=== PATIENT | male | born 1975 | race Two or more races ===

== ENCOUNTER 2022-03-25 17:26 | Emergency (ER) | payer OTHER ==
[~2022-03-25] VITALS: Ht 180.3 cm; Wt 90.0 kg
[2022-03-25 17:30] VITALS: BP 115/79
[2022-03-25] MEDS ORDERED: IBUPROFEN 200 MG TABLET. PO ONE ×2 (18:30→18:55)
--- NOTE | 2022-03-25 18:40 | PHYS DOC ---
Past Medical History Past Medical History: Cancer Past Surgical History: Colectomy General Adult EDM: Chief Complaint: LOWER EXT PAIN HPI: HPI: Patient is a 47-year-old male who presents today with right ankle pain. Patient states that he was outside playing basketball with some friends, and he said he felt a pop in the back of his right lower leg near the heel area, he said since that time he has had difficulty walking and increased pain and swelling in that area. Patient states he is able to walk but is quite difficult due to the pain, patient does have a past medical history of colon cancer and a colostomy. Review of Systems: Review of Systems: Constitutional: Denies fever or chills. [] Eyes: Denies change in visual acuity. [] HENT: Denies nasal congestion or sore throat. [] Respiratory: Denies cough or shortness of breath. [] Cardiovascular: Denies chest pain or edema. [] GI: Denies abdominal pain, nausea, vomiting, bloody stools or diarrhea. [] : Denies dysuria. [] Musculoskeletal: Right lower leg pain Integument: Denies rash. [] Neurologic: Denies headache, focal weakness or sensory changes. [] Endocrine: Denies polyuria or polydipsia. [] Lymphatic: Denies swollen glands. [] Psychiatric: Denies depression or anxiety. [] Heart Score: C/O Chest Pain: No Risk Factors: Risk Factors: DM, Current or recent (<one month) smoker, HTN, HLP, family history of CAD, obesity. Risk Scores: Score 0 - 3: 2.5% MACE over next 6 weeks - Discharge Home Score 4 - 6: 20.3% MACE over next 6 weeks - Admit for Clinical Observation Score 7 - 10: 72.7% MACE over next 6 weeks - Early Invasive Strategies Current Medications: Current Medications Medications (Trade) Dose Ordered Sig/Laura Start Time Stop Time Status Last Admin Dose Admin Ibuprofen (Motrin) 600 mg 1X ONCE 03/25/22 18:30 03/25/22 18:31 UNV Physical Exam: PE: Constitutional: Well developed, well nourished, no acute distress, non-toxic appearance. [] HENT: Normocephalic, atraumatic, bilateral external ears normal, oropharynx moist, no oral exudates, nose normal. [] Eyes: PERRLA, EOMI, conjunctiva normal, no discharge. [] Neck: Normal range of motion, no tenderness, supple, no stridor. [] Cardiovascular:Heart rate regular rhythm, no murmur [] Lungs & Thorax: Bilateral breath sounds clear to auscultation [] Abdomen: Bowel sounds normal, soft, no tenderness, no masses, no pulsatile masses. [] Skin: Warm, dry, no erythema, no rash. [] Back: No tenderness, no CVA tenderness. [] Extremities: Right lower extremity in the heel area is painful and tender to touch, patient also has swelling, patient's Rahman test is abnormal on the right side, patient is able to slightly flex and extend foot but is with great pain. Sensory distal to the injury is intact cap refill is less than 2 seconds and dorsalis pedis pulse is 2+. Neurologic: Alert and oriented X 3, normal motor function, normal sensory function, no focal deficits noted. [] Psychologic: Affect normal, judgement normal, mood normal. [] Current Patient Data: Vital Signs: Vital Signs Date Time Temp Pulse Resp B/P (MAP) Pulse Ox O2 Delivery O2 Flow Rate FiO2 03/25/22 17:30 98.7 84 16 115/79 (91) 99 Room Air 98.7 EKG: EKG: [] Radiology/Procedures: Radiology/Procedures: REASON: felt pop in ankle while playing basketball PROCEDURE: ANKLE RIGHT 3V Exam: Right ankle 3 views INDICATION: Fall, felt a pop ankle while playing basketball TECHNIQUE: Frontal, lateral and oblique views the right ankle Comparisons: None FINDINGS: Bone mineralization is normal. No acute or healed fractures. Soft tissues are unremarkable. Joint spaces are well-maintained. IMPRESSION: No acute osseous abnormality Electronically signed by: Mary Madsen MD (03/25/2022 8:44 PM) [facility] [] Course & Med Decision Making: Course & Med Decision Making Pertinent Labs and Imaging studies reviewed. (See chart for details) [address] Becker from the orthopedic group he recommends splinting the patient with a short leg splint with the ankle slightly plantarflexed, and place the patient on crutches with nonweightbearing at this time. Patient is to call Dr. Becker's office in the a.m. for an appointment as soon as possible for further evaluation and management of this. Patient will be instructed to ice, take Motrin or Tylenol or hydrocodone as needed for pain and to follow-up soon as possible. 1950 Short right lower leg splint in place by nursing staff, I did check the splint after it was placed neurovascular is intact with less than 2-second cap refill patient is able to move his toes and has good sensory in his toes. Dragon Disclaimer: Dragon Disclaimer: This electronic medical record was generated, in whole or in part, using a voice recognition dictation system. Departure Departure Impression: Primary Impression: Achilles rupture, right Qualified Codes: S86.011A - Strain of right Achilles tendon, initial encounter Disposition: HOME / SELF CARE / HOMELESS Condition: STABLE Referrals: LACIE BECKER Jr. DO Patient Instructions: Achilles Tendon Rupture (Partial, Incomplete), Crutch Use Additional Instructions: Keep splint clean and dry Use crutches do not weight-bear on your right leg Ice 20 minutes on 3-4 times daily Motrin 600 mg take 1 tablet every 6 hours as needed for mild to moderate pain Hydrocodone 1 tablet every 6 hours as needed for moderate to severe pain, use with caution may cause drowsiness Follow-up with Dr. Becker as soon as possible for further evaluation and management of this injury. Scripts Hydrocodone Bit/Acetaminophen (HYDROCODONE-APAP 5-325 ) 1 Tab Tablet 1 TAB PO PRN Q6HRS PRN for PAIN, #28 TAB 0 Refills Prov: SKY GALLEGOS PROGRAM DIRECTOR/TRAFFIC DIRECTOR 03/25/22 Ibuprofen (IBUPROFEN) 600 Mg Tablet 600 MG PO PRN Q6HRS PRN for INFLAMMATION, #30 TAB Prov: SKY GALLEGOS PROGRAM DIRECTOR/TRAFFIC DIRECTOR 03/25/22 SKY GALLEGOS PROGRAM DIRECTOR/TRAFFIC DIRECTOR March 25, 2022 18:40
[2022-03-25] MEDS ORDERED: IBUP-1007 PO (19:37)
[2022-03-25] MEDS ORDERED: HYDR-2761 PO (19:49)
--- NOTE | 2022-03-25 20:46 | RAD ---
Exam: Right ankle 3 views INDICATION: Fall, felt a pop ankle while playing basketball TECHNIQUE: Frontal, lateral and oblique views the right ankle Comparisons: None FINDINGS: Bone mineralization is normal. No acute or healed fractures. Soft tissues are unremarkable. Joint spa clotilde are well-maintained. IMPRESSION: No acute osseous abnormality Electronically signed by: Mary Madsen MD (03/25/2022 8:44 PM) [facility]
== END 2022-03-25 20:03 | disposition home or self-care (01) ==
LOC: ER 17:26
DX: S86.011A Strain of right Achilles tendon, initial encounter (principal); Z90.49 Acquired absence of other specified parts of digestive tract; X50.9XXA Other and unspecified overexertion or strenuous movements or postures, initial encounter; Y93.67 Activity, basketball; Y92.89 Other specified places as the place of occurrence of the external cause; Y99.8 Other external cause status
CPT/HCPCS: 29515; 73610; 99283